=== PATIENT | female | born 1950 | race Caucasian/White ===

== ENCOUNTER 2018-09-14 10:53 | Emergency (ER) | payer OTHER ==
[~2018-09-14] VITALS: Ht 177.8 cm; Wt 127.0 kg
[2018-09-14 11:30] LABS: HEMATOCRIT 39.8 % (37.0-47.0); HEMOGLOBIN 13.5 gm/dL (12.0-15.0); MCH 31.1 pg (26.0-34.0); MCHC 33.8 g/dL (28.0-37.0); RBC 4.33 mil/uL (4.20-5.00); RDW 13.3 % (10.5-14.5); WBC 6.1 thou/uL (4.0-11.0)
[2018-09-14 11:44] LABS: ANION GAP 9 mmol/L (7-16); BUN 24 mg/dL (7-18); CALCIUM 9.3 mg/dL (8.5-10.1); CHLORIDE 103 mmol/L (98-107); CO2 28 mmol/L (21-32); CREATININE 1.1 mg/dL (0.6-1.0); GLUCOSE 154 mg/dL (74-106); POTASSIUM 4.1 mmol/L (3.5-5.1); SODIUM 140 mmol/L (136-145)
[2018-09-14] MEDS ORDERED: HYDROCHLOROTH12.5 M1 PO (11:49)
[2018-09-14 11:52] LABS: ALBUMIN 3.4 g/dL (3.4-5.0); SGOT 18 U/L (15-37); SGPT 35 U/L (30-65); TOTAL BILIRUBIN 0.3 mg/dL (<0.1-1.0); TOTAL PROTEIN 7.6 g/dL (6.4-8.2); TROPONIN-I <0.06 ng/mL (<0.06)
[2018-09-14] MEDS ORDERED: NORVASC5 MG PO (12:19)
[2018-09-14 12:45] VITALS: BP 164/71
--- NOTE | 2018-09-15 15:13 | EKG ---
[place] [address] [facility] [place] [address] ELECTROCARDIOGRAM REPORT Name: REYMUNDOJustynAYANH Room #: DEP Bowen#: [id number] ������������������ Admission: 09/14/18 ������������������ Attend Phys: Discharge: 09/14/18 ������������������ Date of : 46 Report #: [id number] ����������������������������������������������������������������� [id number] THIS REPORT FOR: //name// [facility] ED Test Date: 2018-09-14 Test Time: 11:13:05 Pat Name: MANJU ROBLES Department: Room: Gender: F Grant Coordinator: [place] : 1950 Requested By: Sasah Garcia Order Number: [id number] MD: Kyle Roy Measurements Intervals [place] Rate: 84 P: 67 OK: 152 QRS: 35 QRSD: 92 T: 58 QT: 370 QTc: 438 Interpretive Statements Sinus rhythm Baseline artifact present borderline left atrial enlargement Nonspecific ST-T wave changes No previous ECG available for comparison Electronically Signed On 09-15-2018 15:13:28 CDT by Kyle Roy [email or web address] ��������������������������������������������� <ELECTRONICALLY SIGNED> ���������������������������������������� By: Kyle Roy MD ��������������������������������������������� 09/15/18 1513 1113 111 Kyle Roy MD /JA
== END 2018-09-14 12:56 | disposition home or self-care (01) ==
LOC: ER 10:53 → EDBD 10:53 → ER 12:56
PROVIDERS: Physician Assistant
DX: I10 Essential (primary) hypertension (principal); F41.9 Anxiety disorder, unspecified; E11.9 Type 2 diabetes mellitus without complications; Z87.891 Personal history of nicotine dependence

== ENCOUNTER → 2019-05-28 | Outpatient (CLI) | payer OTHER ==
[~2019-05-28] MED LIST: HYDROCHLOROTH12.5 M1 PO; NORVASC5 MG PO
== END ==
LOC: HYPER 13:19
DX: N99.528 Other complication of incontinent external stoma of urinary tract (principal); E11.9 Type 2 diabetes mellitus without complications; E66.9 Obesity, unspecified; I10 Essential (primary) hypertension; J44.9 Chronic obstructive pulmonary disease, unspecified; M85.80 Other specified disorders of bone density and structure, unspecified site; N33 Bladder disorders in diseases classified elsewhere; F32.9 Major depressive disorder, single episode, unspecified; F41.9 Anxiety disorder, unspecified; Z85.51 Personal history of malignant neoplasm of bladder; Z86.718 Personal history of other venous thrombosis and embolism; Z79.84 Long term (current) use of oral hypoglycemic drugs; Z87.891 Personal history of nicotine dependence; Z86.711 Personal history of pulmonary embolism; Z90.49 Acquired absence of other specified parts of digestive tract; Z90.710 Acquired absence of both cervix and uterus; Z79.82 Long term (current) use of aspirin